=== PATIENT | male | born 1975 | race Caucasian/White ===

== ENCOUNTER → 2020-05-10 | Outpatient (CLI) | payer OTHER ==
[~2020-05-10] MED LIST: COVID-19 VACC, MRNA(MODERNA)/PF 100 MCG/0.5 ML VIAL IM ONE
== END ==
LOC: VACCPMC 18:30
DX: Z23 Encounter for immunization (principal); Z20.822 Contact with and (suspected) exposure to COVID-19

== ENCOUNTER → 2020-06-14 | Outpatient (CLI) | payer OTHER | END | DRG 951 | LOC: VACCPMC 09:00 | DX: Z23 Encounter for immunization (principal); Z20.822 Contact with and (suspected) exposure to COVID-19 | CPT/HCPCS: 0012A; 91301 ==

== ENCOUNTER 2021-12-12 08:45 | Emergency (ER) | payer BC ==
[~2021-12-12] VITALS: Ht 172.7 cm; Wt 90.7 kg
== END 2021-12-12 09:32 | disposition home or self-care (01) ==
LOC: ER 08:50
DX: R21 Rash and other nonspecific skin eruption (principal)
CPT/HCPCS: 99282